=== PATIENT | female | born 1965 | race Caucasian/White ===

== ENCOUNTER 2023-11-13 04:13 | Day surgery (SDC) | payer OTHER ==
[2023-11-09 14:39] VITALS: BMI 25.4
[2023-11-13] MEDS ORDERED: METHYLENE BLUE 50 MG/10 ML AMPUL ONE (14:49)
[2023-11-13] MEDS ORDERED: LIDOCAINE HCL 1%, 10 MG/ML (20ML VIAL) ONE (14:49)
[2023-11-13] MEDS ORDERED: SODIUM CHLORIDE 0.9% P/F 10 ML VIAL IJ ONE (15:11)
[2023-11-13] MEDS ORDERED: DEXAMETHASONE SOD PHOSPHATE 4 MG/1 ML VIAL ONE (15:47)
[2023-11-13] MEDS ORDERED: ONDANSETRON 4 MG/2 ML VIAL ONE (15:47)
[2023-11-13] MEDS ORDERED: PROPOFOL 20 ML ONE (15:47)
[2023-11-13] MEDS ORDERED: MIDAZOLAM HCL 2 MG/2 ML SINGLE DOSE VIAL ONE (15:47)
[2023-11-13] MEDS ORDERED: LIDOCAINE HCL/PF 2% SDV 5ML VIAL ONE (15:47)
[2023-11-13] MEDS ORDERED: ONDANSETRON 4 MG/2 ML VIAL IVPUSH PRN (16:12)
[2023-11-13] MEDS ORDERED: PROMETHAZINE HCL 25 MG/1 ML VIAL IVPB PRN (16:12)
[2023-11-13] MEDS ORDERED: oxyCODONE HCL 5 MG TABLET PO PRN ×2 (16:12)
[2023-11-13] MEDS ORDERED: ACETAMINOPHEN 1000 MG/100 ML BAG IVPB PRN (16:13)
[2023-11-13] MEDS ORDERED: LACTATED RINGERS SOLUTION 1,000 ML IV SCH (16:15)
[2023-11-13] MEDS: ceFAZolin SODIUM 1 GM VIAL IVPB ONE (16:45)
[2023-11-13] MEDS ORDERED: ceFAZolin SODIUM 1 GM VIAL ONE (16:47)
[2023-11-13] MEDS ORDERED: ACETAMINOPHEN INJECTION 100 ML IVPB ONE (16:58)
[2023-11-13] MEDS: LIDOCAINE HCL 1% PRESERVATIVE FREE - 30ML VIAL IJ ONE ×3 (17:00)
[2023-11-13] MEDS ORDERED: ePHEDrine SULFATE 50 MG/1 ML AMPULE ONE (17:04)
[2023-11-13] MEDS ORDERED: SEVOFLURANE 250 ML BTL ONE (17:35)
[2023-11-13 19:23] VITALS: BP 141/66; PULSE 91; RESP 16; TEMP 97.3
== END 2023-11-13 07:30 | disposition home or self-care (01) ==
LOC: JASU-SURG 04:13
PROVIDERS: ATTEND Surgery
PROC: 0HBU0ZZ Excision of Left Breast, Open Approach (ICD-10-PCS; principal; 2023-11-13 14:00)
PROC: 0HBU0ZX Excision of Left Breast, Open Approach, Diagnostic (ICD-10-PCS; 2023-11-13 14:00)
DX: C50.912 Malignant neoplasm of unspecified site of left female breast (principal); D24.2 Benign neoplasm of left breast
CPT/HCPCS: 19281; 19282; 76098-TC-FY; 78195-TC; 82962; 88307-TC; 88342-TC; 94760; A4648; A9541; J0131; Q9968